=== PATIENT | male | born 2000 | race Caucasian/White ===

== ENCOUNTER 2024-12-13 17:29 | Emergency (ER) | payer OTHER, SELFPAY ==
[2024-12-13] VITALS (7 sets, daily range): BP systolic 80–130; BP diastolic 43–77; PULSE 62–100; RESP 18–22; TEMP 36.6; O2SAT 98–99; BMI 27.8
--- NOTE | 2024-12-13 17:47 | EKG12_ITS ---
Test Reason : DIZZINESS Blood Pressure : */* mmHG Vent. Rate : 92 BPM Atrial Rate : 92 BPM P-R Int : 168 ms QRS Dur : 102 ms QT Int : 342 ms P-R-T Axes : 26 29 11 degrees QTcB Int : 422 ms Normal sinus rhythm Normal ECG Confirmed by MARIZOL RUTHERFORD, JACEY ([id number]), scientific editor MARIZOL BURCH ([id number]) on 12/14/2024 8:05:15 AM Referred By: Confirmed By: JACEY FONTANA MD
--- NOTE | 2024-12-13 18:10 | EX.ED.DYSGE1 ---
HPI History of Present Illness Chief Complaint: Dizziness Narrative Narrative: Patient is a 24-year-old male with no known significant past medical history who presents to the emergency department chief complaint of lightheadedness, and passing out. Patient states that earlier this morning when he was in the bathroom he states that he became very lightheaded and folic he is going to pass out and does believe he did so. He states that throughout the day several times approximately 3 in total he states that he felt like he became very lightheaded and thought he is in a pass out however he did not he just sat down quickly. He states that he has had some diarrhea and may be a fever he states that he took Tylenol around 1600. Patient states that he has passed out in the past when he has been ill. Patient denies recent travel history denies any show blood clots. Patient and family members at bedside deny any early cardiac .In triage note there is noted that he was dizzy after clarification the patient was not dizzy he was lightheaded. PFSH PFSH Medical History no medical history Allergy/AdvReac Type Severity Reaction Status Date / Time No Known Allergies Allergy Verified 12/13/24 17:30 Social History Smoking Status: Never smoker ROS ROS ED ROS Narrative Constitutional: Complains of lightheadedness as noted above as well as chills denies dizziness Eyes: Denies change in vision double vision blurry vision Cardiovascular: Complains of passing out as noted above no chest pain or palpitation Respiratory: Denies coughing wheezing shortness of breath Abdomen: Denies abdominal pain nausea vomit diarrhea : Denies urinary symptom Neurological: Denies numbness, weakness, Musculoskeletal: Denies back Skin: Denies rashes or lesions EXAM Physical Exam Narrative Exam Narrative: General: Patient is lying in bed rest comfortably did not appear to be in acute distress Head: Atraumatic, normocephalic Eyes: PERRL bilaterally, EOMI bilateral, no conjunctival injection noted Neck: Soft, supple, trachea midline Cardiovascular: Regular rate and rhythm no murmurs gallops rubs noted Respiratory: Clear to auscultation bilaterally Abdomen: Soft, nondistended, nontender to palpation Extremities: +5/5 strength noted in the bilateral upper and lower extremity, radial pulses +2/4 in the bilateral extremities, no pedal edema on exam Neurological: Patient follow commands and that he was at [facility] years 2024. NIH is 0 GCS 15. Patient completed finger-nose testing bilaterally without any difficulty Skin: Warm, dry, intact no rashes or lesions noted Const Vital Signs: 12/13/24 17:30 12/13/24 17:36 12/13/24 18:07 Temperature 97.9 F Temperature Source Temporal Pulse Rate 100 Pulse Rate [Lying] Pulse Rate [Sitting (for 1 minute prior to obtaining)] Pulse Rate [Standing (for 1 minute prior to obtaining)] Respiratory Rate 18 Respiratory Effort Normal Non-Labored Respiratory Pattern Normal Blood Pressure 126/66 H Blood Pressure [Lying] Blood Pressure [Sitting (for 1 minute prior to obtaining)] Blood Pressure [Standing (for 1 minute prior to obtaining)] Blood Pressure Mean 86 Blood Pressure Mean [Lying] Blood Pressure Mean [Sitting (for 1 minute prior to obtaining)] Blood Pressure Mean [Standing (for 1 minute prior to obtaining)] Pulse Ox 99 Oxygen Delivery Method Room Air Room Air 12/13/24 18:20 12/13/24 18:23 12/13/24 19:00 Temperature Temperature Source Pulse Rate 90 81 Pulse Rate [Lying] 83 Pulse Rate [Sitting (for 1 minute prior to obtaining)] 83 Pulse Rate [Standing (for 1 minute prior to obtaining)] 62 Respiratory Rate 22 H 18 Respiratory Effort Respiratory Pattern Blood Pressure 124/77 H 116/67 Blood Pressure [Lying] 114/64 Blood Pressure [Sitting (for 1 minute prior to obtaining)] 113/56 L Blood Pressure [Standing (for 1 minute prior to obtaining)] 80/43 L Blood Pressure Mean 92 83 Blood Pressure Mean [Lying] 80 Blood Pressure Mean [Sitting (for 1 minute prior to obtaining)] 75 Blood Pressure Mean [Standing (for 1 minute prior to obtaining)] 55 Pulse Ox 98 98 Oxygen Delivery Method Room Air Room Air 12/13/24 20:23 12/13/24 20:58 Temperature Temperature Source Pulse Rate 85 Pulse Rate [Lying] 86 Pulse Rate [Sitting (for 1 minute prior to obtaining)] 83 Pulse Rate [Standing (for 1 minute prior to obtaining)] 80 Respiratory Rate Respiratory Effort Respiratory Pattern Blood Pressure 112/75 Blood Pressure [Lying] 113/72 Blood Pressure [Sitting (for 1 minute prior to obtaining)] 125/75 H Blood Pressure [Standing (for 1 minute prior to obtaining)] 130/73 H Blood Pressure Mean 87 Blood Pressure Mean [Lying] 85 Blood Pressure Mean [Sitting (for 1 minute prior to obtaining)] 91 Blood Pressure Mean [Standing (for 1 minute prior to obtaining)] 92 Pulse Ox Oxygen Delivery Method MDM MDM MDM Narrative Medical decision making narrative: Patient is a 24-year-old male who presented to the emergency department with chief complaint of lightheadedness and syncope. On the differential diagnose includes but not limited to vasovagal syncope, dehydration, orthostatic hypotension, COVID, flu. Once workup is obtained reviewed he will be reevaluated. Patient be given a liter of fluid. Orthostatic vital signs will be obtained Orthostatic vital signs were positive. Patient will be given additional fluid. Patient CBC reviewed showed no evidence leukocytosis white blood count normal at 7.7, hemoglobin stable 15.6, platelet count of 192. Patient sodium normal 130, potassium normal 3.6, creatinine normal at 0.92. Patient troponin was less than 6, EKG reviewed showed sinus rhythm with a rate of 90 bpm with a HI interval 168. On reevaluation the patient after the second liter of fluid orthostatics were repeated and were normal. Patient states that he feels back to his baseline. Did discuss results with the patient he was encouraged to hydrate orally with plenty of water and follow-up with his doctor in outpatient setting. He is encouraged return with worsening symptoms or concerns. They are agreeable this plan all question concerns answered he is discharged home in stable condition. Lab Data Labs: Laboratory Results - last 24 hr 12/13/24 18:30 WBC 7.7 RBC 5.26 Hgb 15.6 Hct 44.5 MCV 84.6 MCH 29.7 MCHC 35.1 RDW Std Deviation 37.4 RDW Coeff of Roshan 12.2 Plt Count 192 MPV 9.0 Immature Gran % (Auto) 0.100 Neut % (Auto) 84.3 H Lymph % (Auto) 7.6 L [place] % (Auto) 7.7 Eos % (Auto) 0.0 Baso % (Auto) 0.3 Absolute Neuts (auto) 6.5 Absolute Lymphs (auto) 0.58 L Nucleated RBC % 0 Sodium 138 Potassium 3.6 Chloride 104 Carbon Dioxide 23.9 Anion Gap 10 BUN 14 Creatinine 0.92 Estim Creat Clear Calc 141.34 Est GFR (MDRD) Non-Af 118 BUN/Creatinine Ratio 15.0 Glucose 115 H Calcium 8.4 Troponin T High Sens < 6 Discharge Plan Triage Chief Complaint: Dizziness ED Provider: Liam Vásquez Dx/Rx/DC Orders Clinical Impression: Orthostatic hypotension Primary Care Provider: Sandro Renee Referrals: Sandro Renee DO [Primary Care Provider] - Activity Restrictions/Additional Instructions: Follow-up with your doctor in outpatient setting. Ensure that you are drinking plenty of water. Return with worsening symptoms or concerns. Print Language: Togolese Disposition Disposition: Home, Self Care
[2024-12-13] MEDS: 0.9% Normal Saline (1000mL) 1,000 ML 999 ML IV ×2 (18:30→19:44)
[2024-12-13 18:40] LABS: Absolute Lymphocyte Count 0.58 X10^3/uL (0.83-4.51); Absolute Neutrophil Count 6.5 X10^3/uL (2.0-7.7); Basophil# 0.02 X10^3/uL; Basophil% 0.3 % (0-1); Hematocrit 44.5 % (40-54); Hemoglobin 15.6 g/dL (13.0-16.5); Lymphocyte # 0.58 X10^3/ul (0.83-4.51); Lymphocyte % 7.6 % (19-41); Mean Corp Hgb Conc 35.1 g/dL (32-36); Mean Corpuscular Hgb 29.7 pg (27.0-32.0); Mean Corpuscular Volume 84.6 fL (80-94); Monocyte# 0.59 X10^3/uL; Monocyte% 7.7 % (0-10); NRBC Flagged by Analyzer 0 % (0-5); Neutrophil # 6.46 X10^3/uL (2.7-7.7); Neutrophil % 84.3 % (47-70); POSITIVE DIFFERENTIAL YES; Platelet Count 192 K/mm3 (150-450); RBC Distribution Width CV 12.2 % (11.6-14.6); RBC Distribution Width SD 37.4 fl (35.1-43.9); Red Blood Count 5.26 M/mm3 (4.6-6.2); White Blood Count 7.7 K/mm3 (4.4-11.0)
[2024-12-13 19:09] LABS: Anion Gap 10 (5-15); BUN 14 mg/dL (4-19); Calcium,Total 8.4 mg/dL (7.6-11.0); Carbon Dioxide 23.9 mmol/L (21.0-32.0); Chloride 104 mmol/L (98-108); Creatinine, Serum 0.92 mg/dL (0.70-1.20); EST Glomerular Filtration Rate 118 (>60); Estimated Creatinine Clearance 141.34 ml/min (50-250); Glucose 115 mg/dL (70-99); Potassium 3.6 mmol/L (3.3-5.1); Sodium Level 138 mmol/L (133-145); Troponin T High Sensitivity < 6 ng/L (<=22)
== END 2024-12-13 21:32 | disposition home or self-care (01) ==
PROVIDERS: Emergency Provider Emergency Medicine; PCP Family Medicine; Visit Provider Emergency Medicine
DX: I95.1 Orthostatic hypotension (principal)
CPT/HCPCS: 80048; 84484; 85025; 87631; 93005; 96360; 96361; 99285